=== PATIENT | male | born 1935 | race Caucasian/White ===

== ENCOUNTER 2022-04-20 22:35 | Observation (INO) | payer MEDICARE, OTHER, SELFPAY ==
[2022-04-20 23:23] LABS: ALT (SGPT) 9 U/L (8-55); AST (SGOT) 14 U/L (5-34); Albumin 3.7 g/dL (3.4-4.8); Alkaline Phosphatase 163 U/L (40-110); Anion Gap 12 mmol/L (10-20); BUN (Urea Nitrogen) 20 mg/dL (8.4-25.7); Bilirubin, Total 0.7 mg/dL (0.2-1.2); Calc. Creatinine Clearance 0 mL/min (70-130); Calcium 9.3 mg/dL (7.8-10.44); Carbon Dioxide 25 mmol/L (23-31); Chloride 106 mmol/L (98-107); Estimated GFR 56; Globulin 2.6 g/dL (2.4-3.5); Glucose 98 mg/dL (83-110); Potassium 4.2 mmol/L (3.5-5.1); Protein, Total 6.3 g/dL (5.8-8.1); Sodium 139 mmol/L (136-145)
[2022-04-20 23:45] LABS: CKMB 2.6 ng/mL (0-6.6)
[2022-04-20] MEDS ORDERED: Aspirin 325 MG TAB ONE (23:45)
[2022-04-21 00:02] LABS: Lipase 89 U/L (8-78); Magnesium 1.9 mg/dL (1.6-2.6)
[2022-04-21] MEDS ORDERED: Ondansetron PF 4 MG/2 ML Vial IVP PRN (01:51)
[2022-04-21] MEDS ORDERED: Ondansetron ODT 4 MG TAB PO PRN (01:51)
[2022-04-21] MEDS ORDERED: Calcium Carbonate 500 MG ChewTAB PO PRN (01:51)
[2022-04-21 03:11] LABS: Troponin I 0.032 ng/mL (< 0.028)
[2022-04-21 05:51] LABS: ALT (SGPT) 8 U/L (8-55); AST (SGOT) 12 U/L (5-34); Albumin 3.5 g/dL (3.4-4.8); Alkaline Phosphatase 142 U/L (40-110); Anion Gap 10 mmol/L (10-20); BUN (Urea Nitrogen) 18 mg/dL (8.4-25.7); Bilirubin, Total 0.7 mg/dL (0.2-1.2); Calc. Creatinine Clearance 0 mL/min (70-130); Calcium 9.2 mg/dL (7.8-10.44); Carbon Dioxide 26 mmol/L (23-31); Chloride 107 mmol/L (98-107); Estimated GFR 67; Globulin 2.3 g/dL (2.4-3.5); Glucose 84 mg/dL (83-110); Potassium 4.4 mmol/L (3.5-5.1); Protein, Total 5.8 g/dL (5.8-8.1); Sodium 139 mmol/L (136-145)
[2022-04-21 05:54] LABS: Troponin I 0.037 ng/mL (< 0.028)
[2022-04-21 06:06] LABS: #Basophils 0.1 thou/uL (0.0-0.2); #Eosinphils 0.1 thou/uL (0.0-0.7); #Lymphocytes 1.6 thou/uL (1.20-3.40); #Monocytes 0.5 thou/uL (0.11-0.59); #Neutrophils 2.7 thou/uL (1.40-6.50); %Basophils 1.1 % (0.0-1.0); %Eosinophils 2.6 % (0.0-10.0); %Lymphocytes 31.9 % (21.0-51.0); %Monocytes 10.3 % (0.0-10.0); Hemoglobin 11.1 g/dL (14.0-18.0); MDiff Complete? YES; Macrocytosis SLIGHT = 6-15 cells (100X) (0-5/hpf); Mean Corpuscular HGB CONC 33.1 g/dL (32.0-36.0); Mean Platelet Volume 6.7 fL (7.4-10.4); Platelet Count 251 thou/uL (130-400); RBC Distribution Width 12.6 % (11.5-14.5); Red Blood Cell (RBC) Count 3.19 mill/uL (4.70-6.10)
[2022-04-21 07:45] VITALS: BMI 23.4
[2022-04-21] MEDS ORDERED: Enoxaparin Sodium 40 MG/0.4 ML SYRINGE SC SCH (09:00)
[2022-04-21] MEDS ORDERED: FLU VACC QS2022-23(65YR UP)/PF 240 MCG/0.7 ML SYRINGE IM ONE (14:00)
[2022-04-21] MEDS ORDERED: Methocarbamol 500 MG TAB PO PRN (17:56)
[2022-04-21] MEDS ORDERED: hydrALAZINE 20 MG/ML VIAL SLOW IVP PRN (18:00)
[2022-04-21] MEDS ORDERED: Atorvastatin Calcium 20 MG TAB PO SCH (21:00)
[2022-04-21] MEDS: Docusate 100 MG CAP PO SCH (21:08)
[2022-04-21] MEDS: Apixaban 2.5 MG TAB PO SCH (21:09)
[2022-04-22 05:55] LABS: #Eosinphils 0.1 thou/uL (0.0-0.7); #Lymphocytes 1.3 thou/uL (1.20-3.40); #Monocytes 0.6 thou/uL (0.11-0.59); #Neutrophils 3.2 thou/uL (1.40-6.50); %Basophils 0.5 % (0.0-1.0); %Eosinophils 2.5 % (0.0-10.0); %Lymphocytes 24.7 % (21.0-51.0); %Neutrophils 60.4 % (42.0-75.0); Hemoglobin 11.2 g/dL (14.0-18.0); Mean Corpuscular HGB CONC 33.1 g/dL (32.0-36.0); Mean Corpuscular Hemoglobin 34.8 pg (27.0-31.0); Mean Platelet Volume 7.1 fL (7.4-10.4); Platelet Count 247 thou/uL (130-400); RBC Distribution Width 12.6 % (11.5-14.5); Red Blood Cell (RBC) Count 3.22 mill/uL (4.70-6.10); White Blood Cell (WBC) Count 5.3 thou/uL (4.8-10.8)
[2022-04-22] MEDS ORDERED: Levothyroxine Sodium 100 MCG TAB PO SCH (06:00)
[2022-04-22 06:39] LABS: ALT (SGPT) 8 U/L (8-55); AST (SGOT) 13 U/L (5-34); Albumin 3.5 g/dL (3.4-4.8); Alkaline Phosphatase 144 U/L (40-110); Anion Gap 10 mmol/L (10-20); BUN (Urea Nitrogen) 15 mg/dL (8.4-25.7); Bilirubin, Total 0.8 mg/dL (0.2-1.2); Calc. Creatinine Clearance 60 mL/min (70-130); Calcium 9.7 mg/dL (7.8-10.44); Carbon Dioxide 28 mmol/L (23-31); Chloride 105 mmol/L (98-107); Estimated GFR 74; Globulin 2.4 g/dL (2.4-3.5); Glucose 86 mg/dL (83-110); Potassium 4.5 mmol/L (3.5-5.1); Protein, Total 5.9 g/dL (5.8-8.1); Sodium 138 mmol/L (136-145)
[2022-04-22] MEDS ORDERED: Sertraline 100 MG TAB PO SCH (09:00)
[2022-04-22] MEDS ORDERED: Cholecalciferol 1,000 UNITS (25 MCG) TAB PO SCH (09:00)
[2022-04-22] MEDS ORDERED: Multivitamin W/ Minerals 1 TAB PO SCH (09:00)
[2022-04-22] MEDS ORDERED: Aspirin 81 mg Enteric Coated Tablet PO SCH (09:00)
[2022-04-22] MEDS ORDERED: Losartan 25 MG TAB PO SCH (09:00)
[2022-04-22] MEDS: Apixaban 2.5 MG TAB PO SCH (10:07)
[2022-04-22] MEDS: Docusate 100 MG CAP PO SCH (10:07)
[2022-04-23 02:37] VITALS: BP 162/93
[2022-04-23 02:41] VITALS: TEMP 98.1
== END 2022-04-22 16:56 ==
LOC: ERS 22:35 → ERHOLD 04-21 00:56 → 2SW 04-21 07:34
PROVIDERS: ADMIT Emergency Medicine; ATTEND Emergency Medicine
DX: R07.89 Other chest pain (principal); E11.9 Type 2 diabetes mellitus without complications; E78.5 Hyperlipidemia, unspecified; E03.9 Hypothyroidism, unspecified; M19.90 Unspecified osteoarthritis, unspecified site; F17.210 Nicotine dependence, cigarettes, uncomplicated; I70.0 Atherosclerosis of aorta; F03.90 Unspecified dementia, unspecified severity, without behavioral disturbance, psychotic disturbance, mood disturbance, and anxiety; F17.220 Nicotine dependence, chewing tobacco, uncomplicated; I11.9 Hypertensive heart disease without heart failure; I08.8 Other rheumatic multiple valve diseases; I48.0 Paroxysmal atrial fibrillation; R41.0 Disorientation, unspecified; Z79.01 Long term (current) use of anticoagulants; Z79.82 Long term (current) use of aspirin; Z79.890 Hormone replacement therapy; Z79.899 Other long term (current) drug therapy; Z88.8 Allergy status to other drugs, medicaments and biological substances; Z95.0 Presence of cardiac pacemaker; Z20.822 Contact with and (suspected) exposure to COVID-19
CPT/HCPCS: 36415; 71045; 80053; 82553; 83690; 83735; 84484; 85025; 93005; 93306; 96372; G0378; J1650; U0003; U0005

== ENCOUNTER 2022-05-29 20:15 | Inpatient (IN) | payer OTHER ==
[2022-05-29 21:56] LABS: ALT (SGPT) 35 U/L (8-55); AST (SGOT) 33 U/L (5-34); Albumin 3.7 g/dL (3.4-4.8); Alkaline Phosphatase 126 U/L (40-110); Anion Gap 11 mmol/L (10-20); BUN (Urea Nitrogen) 17 mg/dL (8.4-25.7); Bilirubin, Total 0.7 mg/dL (0.2-1.2); Calc. Creatinine Clearance 0 mL/min (70-130); Carbon Dioxide 27 mmol/L (23-31); Chloride 106 mmol/L (98-107); Estimated GFR 54; Globulin 2.3 g/dL (2.4-3.5); Glucose 107 mg/dL (83-110); Lipase 61 U/L (8-78); Potassium 4.4 mmol/L (3.5-5.1); Sodium 140 mmol/L (136-145)
[2022-05-29 22:02] LABS: #Eosinphils 0.1 thou/uL (0.0-0.7); #Lymphocytes 1.4 thou/uL (1.20-3.40); #Monocytes 0.7 thou/uL (0.11-0.59); #Neutrophils 4.8 thou/uL (1.40-6.50); %Basophils 0.7 % (0.0-1.0); %Lymphocytes 19.4 % (21.0-51.0); %Monocytes 10.2 % (0.0-10.0); %Neutrophils 67.7 % (42.0-75.0); Hemoglobin 12.1 g/dL (14.0-18.0); Mean Corpuscular HGB CONC 32.4 g/dL (32.0-36.0); Mean Corpuscular Hemoglobin 33.9 pg (27.0-31.0); Mean Platelet Volume 7.4 fL (7.4-10.4); Platelet Count 274 10x3/uL (130-400); RBC Distribution Width 12.1 % (11.5-14.5); Red Blood Cell (RBC) Count 3.58 mill/uL (4.70-6.10)
[2022-05-29 22:22] LABS: CKMB 3.7 ng/mL (0-6.6)
[2022-05-29] MEDS ORDERED: Nitroglycerin 2% Ointment 1 INCH/1 GM Packet ONE (23:27)
[2022-05-29] MEDS ORDERED: Furosemide 40 MG/4 ML VIAL ONE (23:27)
[2022-05-30] MEDS ORDERED: LORazepam 2 MG/ML SYR.(CARPUJECT) ONE (00:35)
[2022-05-30 01:43] LABS: Troponin I 0.047 ng/mL (< 0.028)
[2022-05-30] MEDS ORDERED: Methocarbamol 500 MG TAB PO PRN (02:08)
[2022-05-30 02:12] LABS: Magnesium 1.9 mg/dL (1.6-2.6); Phosphorus 3.3 mg/dL (2.3-4.7)
[2022-05-30 04:48] LABS: Anion Gap 13 mmol/L (10-20); BUN (Urea Nitrogen) 19 mg/dL (8.4-25.7); Calc. Creatinine Clearance 49 mL/min (70-130); Calcium 9.2 mg/dL (7.8-10.44); Carbon Dioxide 28 mmol/L (23-31); Chloride 104 mmol/L (98-107); Estimated GFR 57; Glucose 89 mg/dL (83-110); Sodium 141 mmol/L (136-145)
[2022-05-30 04:53] LABS: Troponin I 0.052 ng/mL (< 0.028)
[2022-05-30] MEDS: Acetaminophen 500 MG TAB PO SCH ×3 (05:39→22:14)
[2022-05-30] MEDS: Lidocaine 5% Patch TD SCH ×2 (05:40→08:14)
[2022-05-30] MEDS ORDERED: Lactated Ringer's 1,000 ML IV SCH (06:00)
[2022-05-30] MEDS ORDERED: Sodium Chloride 0.9% 1,000 ML IV SCH (06:15)
[2022-05-30 06:26] LABS: Hemoglobin 10.2 g/dL (14.0-18.0)
[2022-05-30] MEDS: Levothyroxine Sodium 100 MCG TAB PO SCH (08:17)
[2022-05-30] MEDS: Docusate 100 MG CAP PO SCH ×2 (08:17→22:14)
[2022-05-30] MEDS: Sertraline 25 MG TAB PO SCH (08:18)
[2022-05-30] MEDS: Cholecalciferol 1,000 UNITS (25 MCG) TAB PO SCH (08:18)
[2022-05-30 08:51] LABS: Hemoglobin 9.5 g/dL (14.0-18.0)
[2022-05-30] MEDS ORDERED: FLU VACC QS2022-23(6MOS UP)/PF 60 MCG/0.5 ML SYRINGE IM ONE (09:00)
[2022-05-30] MEDS ORDERED: Furosemide 20 MG/2 ML VIAL SLOW IVP SCH (09:00)
[2022-05-30] MEDS ORDERED: Aspirin 81 mg Enteric Coated Tablet PO SCH (09:00)
[2022-05-30] MEDS ORDERED: Losartan 25 MG TAB PO SCH (09:00)
[2022-05-30] MEDS ORDERED: Apixaban 5 MG TAB PO SCH (09:00)
[2022-05-30 12:20] LABS: Hemoglobin 9.4 g/dL (14.0-18.0)
[2022-05-30] MEDS: Multivitamin W/ Minerals 1 TAB PO SCH (12:30)
[2022-05-30 17:13] LABS: Hemoglobin 9.3 g/dL (14.0-18.0)
[2022-05-30] MEDS: Atorvastatin Calcium 20 MG TAB PO SCH (22:14)
[2022-05-30] MEDS: Transdermal Patch Removal TOP SCH (22:17)
[2022-05-31] MEDS ORDERED: Haloperidol Lactate 5 MG/ML VIAL SLOW IVP SCH (02:00)
[2022-05-31] MEDS ORDERED: diphenhydrAMINE 50 MG/ML VIAL IVP SCH (02:00)
[2022-05-31 05:29] LABS: Hemoglobin 7.9 g/dL (14.0-18.0)
[2022-05-31 05:50] LABS: Anion Gap 13 mmol/L (10-20); BUN (Urea Nitrogen) 27 mg/dL (8.4-25.7); Calc. Creatinine Clearance 47 mL/min (70-130); Calcium 8.4 mg/dL (7.8-10.44); Carbon Dioxide 25 mmol/L (23-31); Chloride 106 mmol/L (98-107); Estimated GFR 55; Glucose 98 mg/dL (83-110); Potassium 3.7 mmol/L (3.5-5.1); Sodium 140 mmol/L (136-145)
[2022-05-31] MEDS: Lidocaine 5% Patch TD SCH (09:01)
[2022-05-31] MEDS: Multivitamin W/ Minerals 1 TAB PO SCH (09:01)
[2022-05-31] MEDS: Levothyroxine Sodium 100 MCG TAB PO SCH (09:02)
[2022-05-31] MEDS: Docusate 100 MG CAP PO SCH ×2 (09:02→20:30)
[2022-05-31] MEDS: Acetaminophen 500 MG TAB PO SCH ×2 (09:02→20:30)
[2022-05-31] MEDS: Cholecalciferol 1,000 UNITS (25 MCG) TAB PO SCH (09:02)
[2022-05-31] MEDS: Sertraline 25 MG TAB PO SCH (09:02)
[2022-05-31 09:40] LABS: Hemoglobin 8.3 g/dL (14.0-18.0)
[2022-05-31 13:21] VITALS: BMI 24.7
[2022-05-31 18:55] LABS: Hemoglobin 8.2 g/dL (14.0-18.0)
[2022-05-31] MEDS: Atorvastatin Calcium 20 MG TAB PO SCH (20:30)
[2022-05-31] MEDS: Transdermal Patch Removal TOP SCH (20:31)
[2022-06-01 05:40] LABS: #Eosinphils 0.2 thou/uL (0.0-0.7); #Lymphocytes 1.6 thou/uL (1.20-3.40); #Monocytes 0.9 thou/uL (0.11-0.59); #Neutrophils 4.2 thou/uL (1.40-6.50); %Basophils 0.2 % (0.0-1.0); %Eosinophils 2.3 % (0.0-10.0); %Lymphocytes 23.1 % (21.0-51.0); %Neutrophils 61.3 % (42.0-75.0); Hemoglobin 7.7 g/dL (14.0-18.0); Mean Corpuscular HGB CONC 32.9 g/dL (32.0-36.0); Mean Corpuscular Hemoglobin 34.5 pg (27.0-31.0); Mean Platelet Volume 7.2 fL (7.4-10.4); Platelet Count 191 10x3/uL (130-400); Red Blood Cell (RBC) Count 2.23 mill/uL (4.70-6.10); White Blood Cell (WBC) Count 6.9 10x3/uL (4.8-10.8)
[2022-06-01 05:58] LABS: Anion Gap 12 mmol/L (10-20); BUN (Urea Nitrogen) 22 mg/dL (8.4-25.7); Calc. Creatinine Clearance 57 mL/min (70-130); Calcium 8.4 mg/dL (7.8-10.44); Carbon Dioxide 26 mmol/L (23-31); Chloride 105 mmol/L (98-107); Estimated GFR 68; Glucose 84 mg/dL (83-110); Potassium 4.2 mmol/L (3.5-5.1); Sodium 139 mmol/L (136-145)
[2022-06-01] MEDS: Multivitamin W/ Minerals 1 TAB PO SCH (09:03)
[2022-06-01] MEDS: Acetaminophen 500 MG TAB PO SCH ×2 (09:03→21:12)
[2022-06-01] MEDS: Sertraline 25 MG TAB PO SCH (09:04)
[2022-06-01] MEDS: Cholecalciferol 1,000 UNITS (25 MCG) TAB PO SCH (09:04)
[2022-06-01] MEDS: Levothyroxine Sodium 100 MCG TAB PO SCH (09:04)
[2022-06-01] MEDS: Docusate 100 MG CAP PO SCH ×2 (09:05→21:12)
[2022-06-01] MEDS: Lidocaine 5% Patch TD SCH (09:05)
[2022-06-01] MEDS ORDERED: Furosemide 20 MG/2 ML VIAL SLOW IVP SCH (09:45)
[2022-06-01 17:11] LABS: Hemoglobin 9.3 g/dL (14.0-18.0)
[2022-06-01] MEDS: Transdermal Patch Removal TOP SCH (21:12)
[2022-06-01] MEDS: Atorvastatin Calcium 20 MG TAB PO SCH (21:12)
[2022-06-02 07:23] LABS: #Eosinphils 0.2 thou/uL (0.0-0.7); #Lymphocytes 1.7 thou/uL (1.20-3.40); #Monocytes 0.9 thou/uL (0.11-0.59); %Basophils 0.5 % (0.0-1.0); %Lymphocytes 24.5 % (21.0-51.0); %Monocytes 13.2 % (0.0-10.0); %Neutrophils 58.8 % (42.0-75.0); Hemoglobin 8.9 g/dL (14.0-18.0); Mean Corpuscular HGB CONC 35.7 g/dL (32.0-36.0); Mean Corpuscular Hemoglobin 36.6 pg (27.0-31.0); Platelet Count 192 10x3/uL (130-400); RBC Distribution Width 12.7 % (11.5-14.5); Red Blood Cell (RBC) Count 2.43 mill/uL (4.70-6.10); White Blood Cell (WBC) Count 6.8 10x3/uL (4.8-10.8)
[2022-06-02 07:35] LABS: Anion Gap 13 mmol/L (10-20); BUN (Urea Nitrogen) 18 mg/dL (8.4-25.7); Calc. Creatinine Clearance 61 mL/min (70-130); Calcium 8.7 mg/dL (7.8-10.44); Carbon Dioxide 25 mmol/L (23-31); Chloride 105 mmol/L (98-107); Estimated GFR 72; Glucose 83 mg/dL (83-110); Potassium 4.1 mmol/L (3.5-5.1); Sodium 139 mmol/L (136-145)
[2022-06-02] MEDS: Docusate 100 MG CAP PO SCH ×2 (08:58→20:02)
[2022-06-02] MEDS: Levothyroxine Sodium 100 MCG TAB PO SCH (08:58)
[2022-06-02] MEDS: Sertraline 25 MG TAB PO SCH (08:58)
[2022-06-02] MEDS: Lidocaine 5% Patch TD SCH (08:58)
[2022-06-02] MEDS: Multivitamin W/ Minerals 1 TAB PO SCH (08:58)
[2022-06-02] MEDS: Cholecalciferol 1,000 UNITS (25 MCG) TAB PO SCH (08:59)
[2022-06-02] MEDS: Acetaminophen 500 MG TAB PO SCH ×2 (08:59→20:02)
[2022-06-02] MEDS: Atorvastatin Calcium 20 MG TAB PO SCH (20:02)
[2022-06-02] MEDS: Transdermal Patch Removal TOP SCH (20:03)
[2022-06-03 06:17] LABS: Anion Gap 10 mmol/L (10-20); BUN (Urea Nitrogen) 20 mg/dL (8.4-25.7); Calc. Creatinine Clearance 62 mL/min (70-130); Calcium 8.7 mg/dL (7.8-10.44); Carbon Dioxide 28 mmol/L (23-31); Chloride 105 mmol/L (98-107); Estimated GFR 77; Glucose 93 mg/dL (83-110); Potassium 4.3 mmol/L (3.5-5.1); Sodium 139 mmol/L (136-145)
[2022-06-03] MEDS: Lidocaine 5% Patch TD SCH (09:29)
[2022-06-03] MEDS: Acetaminophen 500 MG TAB PO SCH (09:31)
[2022-06-03] MEDS: Cholecalciferol 1,000 UNITS (25 MCG) TAB PO SCH (09:32)
[2022-06-03] MEDS: Levothyroxine Sodium 100 MCG TAB PO SCH (09:32)
[2022-06-03] MEDS: Multivitamin W/ Minerals 1 TAB PO SCH (09:32)
[2022-06-03] MEDS: Docusate 100 MG CAP PO SCH (09:32)
[2022-06-03] MEDS: Sertraline 25 MG TAB PO SCH (09:32)
[2022-06-03 11:32] VITALS: BP 136/70; TEMP 97.6
== END 2022-06-03 14:15 | DRG 291 ==
LOC: ERS 20:15 → NEURO 05-30 01:05 → OBSVTOIN 06-02 15:19
PROVIDERS: ADMIT Family Medicine; ATTEND Student in an Organized Health Care Education/Training Program
PROC: 30233N1 Transfusion of Nonautologous Red Blood Cells into Peripheral Vein, Percutaneous Approach (ICD-10-PCS; principal; 2022-06-01)
DX: I13.0 Hypertensive heart and chronic kidney disease with heart failure and stage 1 through stage 4 chronic kidney disease, or unspecified chronic kidney disease (principal); I50.43 Acute on chronic combined systolic (congestive) and diastolic (congestive) heart failure; I47.20 Ventricular tachycardia, unspecified; Z66 Do not resuscitate; Z20.822 Contact with and (suspected) exposure to COVID-19; R94.31 Abnormal electrocardiogram [ECG] [EKG]; R77.8 Other specified abnormalities of plasma proteins; N18.31 Chronic kidney disease, stage 3a; G31.84 Mild cognitive impairment of uncertain or unknown etiology; E03.9 Hypothyroidism, unspecified; E78.5 Hyperlipidemia, unspecified; R29.6 Repeated falls; M19.90 Unspecified osteoarthritis, unspecified site; I48.0 Paroxysmal atrial fibrillation; W18.30XA Fall on same level, unspecified, initial encounter; S70.02XA Contusion of left hip, initial encounter; Z28.21 Immunization not carried out because of patient refusal; Z95.0 Presence of cardiac pacemaker; Z88.8 Allergy status to other drugs, medicaments and biological substances; Z79.899 Other long term (current) drug therapy; Z79.82 Long term (current) use of aspirin; Z79.890 Hormone replacement therapy; Z79.01 Long term (current) use of anticoagulants; Z82.3 Family history of stroke; Z82.49 Family history of ischemic heart disease and other diseases of the circulatory system; Z91.81 History of falling
CPT/HCPCS: 36415; 36430; 71045; 72170; 74176; 80048; 80053; 82553; 83690; 83735; 83880; 84100; 84484; 85014; 85018; 85025; 86850; 86900; 86901; 93005; 96374; 96375; 96376; 97139; G0378; J1940; J2060; J7050; P9016; U0002

== ENCOUNTER 2022-09-05 05:16 | Observation (INO) | payer OTHER ==
[2022-09-05 06:38] LABS: #Lymphocytes 1.1 thou/uL (1.20-3.40); #Monocytes 0.9 thou/uL (0.11-0.59); #Neutrophils 4.9 thou/uL (1.40-6.50); %Basophils 0.2 % (0.0-1.0); %Eosinophils 0.7 % (0.0-10.0); %Monocytes 12.4 % (0.0-10.0); %Neutrophils 70.7 % (42.0-75.0); Hemoglobin 11.9 g/dL (14.0-18.0); Mean Corpuscular HGB CONC 33.6 g/dL (32.0-36.0); Mean Corpuscular Hemoglobin 34.8 pg (27.0-31.0); Mean Platelet Volume 7.3 fL (7.4-10.4); Platelet Count 205 10x3/uL (130-400); RBC Distribution Width 12.2 % (11.5-14.5); Red Blood Cell (RBC) Count 3.43 mill/uL (4.70-6.10)
[2022-09-05 07:00] LABS: ALT (SGPT) 26 U/L (8-55); AST (SGOT) 27 U/L (5-34); Albumin 3.6 g/dL (3.4-4.8); Alkaline Phosphatase 83 U/L (40-110); Anion Gap 14 mmol/L (10-20); BUN (Urea Nitrogen) 21 mg/dL (8.4-25.7); Bilirubin, Total 0.6 mg/dL (0.2-1.2); Calc. Creatinine Clearance 0 mL/min (70-130); Calcium 9.1 mg/dL (7.8-10.44); Carbon Dioxide 23 mmol/L (23-31); Chloride 100 mmol/L (98-107); Estimated GFR 63; Globulin 2.1 g/dL (2.4-3.5); Glucose 93 mg/dL (83-110); Magnesium 1.7 mg/dL (1.6-2.6); Potassium 4.6 mmol/L (3.5-5.1); Protein, Total 5.7 g/dL (5.8-8.1); Sodium 132 mmol/L (136-145)
[2022-09-05 07:16] LABS: Bilirubin Negative (Negative); Blood, Urine Negative (Negative); Glucose, Urine (Dipstick) Negative (Negative); Ketone, Urine Negative (Negative); Leukocyte Negative (Negative); Nitrite Negative (Negative); Protein, Urine (Dipstick) Negative (Neg-Trace); Urobilinogen 0.2 mg/dL (Less than 2); pH, Urine 6.5 (5.0-9.0)
[2022-09-05 07:19] LABS: Clarity Clear (Clear)
[2022-09-05 07:21] LABS: CKMB 5.2 ng/mL (0-6.6)
[2022-09-05] MEDS ORDERED: Furosemide 40 MG/4 ML VIAL ONE (07:54)
[2022-09-05] MEDS ORDERED: Cholecalciferol 1,000 UNITS (25 MCG) TAB PO SCH (09:00)
[2022-09-05] MEDS ORDERED: Non-Formulary Item 1 EACH (Sertraline Hcl [Zoloft] 50 MG Tablet) PO SCH (09:00)
[2022-09-05] MEDS ORDERED: Non-Formulary Item 1 EACH (Losartan Potassium [Cozaar] 50 MG Tab) PO SCH (09:00)
[2022-09-05] MEDS ORDERED: Acetaminophen/Codeine 30-300mg Tablet PO PRN ×2 (10:50→11:06)
[2022-09-05] MEDS ORDERED: Methocarbamol 500 MG TAB PO PRN (10:50)
[2022-09-05] MEDS ORDERED: Aspirin Chewable 81 MG TAB ONE (11:18)
[2022-09-05] MEDS ORDERED: Metoprolol Tartrate 50 MG TAB ONE (11:18)
[2022-09-05] MEDS: Aspirin 81 mg Enteric Coated Tablet PO SCH (11:21)
[2022-09-05 11:47] LABS: Troponin I 0.048 ng/mL (< 0.028)
[2022-09-05] MEDS ORDERED: Furosemide 40 MG/4 ML VIAL SLOW IVP SCH (13:00)
[2022-09-05 13:41] LABS: Troponin I 0.041 ng/mL (< 0.028)
[2022-09-05] MEDS ORDERED: Ondansetron PF 4 MG/2 ML Vial IVP PRN (13:46)
[2022-09-05] MEDS ORDERED: Ondansetron ODT 4 MG TAB PO PRN (13:46)
[2022-09-05] MEDS ORDERED: Acetaminophen 325 MG TAB PO PRN (13:46)
[2022-09-05] MEDS: Levothyroxine Sodium 100 MCG TAB PO SCH (14:40)
[2022-09-05] MEDS: Cyanocobalamin (Vitamin B-12) 1,000 MCG TAB PO SCH (14:41)
[2022-09-05] MEDS: Multivitamin W/ Minerals 1 TAB PO SCH (14:46)
[2022-09-05] MEDS: Apixaban 2.5 MG TAB PO SCH (21:37)
[2022-09-05] MEDS: Atorvastatin Calcium 20 MG TAB PO SCH (21:37)
[2022-09-05] MEDS: Docusate 100 MG CAP PO SCH (21:37)
[2022-09-05] MEDS: Melatonin 3 MG TAB PO PRN (21:37)
[2022-09-06 04:58] LABS: #Basophils 0.1 thou/uL (0.0-0.2); #Eosinphils 0.1 thou/uL (0.0-0.7); #Lymphocytes 1.4 thou/uL (1.20-3.40); #Neutrophils 4.8 thou/uL (1.40-6.50); %Basophils 0.8 % (0.0-1.0); %Eosinophils 1.4 % (0.0-10.0); %Lymphocytes 18.8 % (21.0-51.0); %Monocytes 13.4 % (0.0-10.0); %Neutrophils 65.7 % (42.0-75.0); Hemoglobin 11.6 g/dL (14.0-18.0); Mean Corpuscular Hemoglobin 34.9 pg (27.0-31.0); Mean Platelet Volume 7.3 fL (7.4-10.4); Platelet Count 196 10x3/uL (130-400); RBC Distribution Width 12.3 % (11.5-14.5); Red Blood Cell (RBC) Count 3.33 mill/uL (4.70-6.10); White Blood Cell (WBC) Count 7.3 10x3/uL (4.8-10.8)
[2022-09-06 05:24] LABS: ALT (SGPT) 23 U/L (8-55); AST (SGOT) 26 U/L (5-34); Albumin 3.1 g/dL (3.4-4.8); Alkaline Phosphatase 86 U/L (40-110); Anion Gap 13 mmol/L (10-20); BUN (Urea Nitrogen) 25 mg/dL (8.4-25.7); Bilirubin, Total 0.6 mg/dL (0.2-1.2); Calc. Creatinine Clearance 54 mL/min (70-130); Calcium 9.1 mg/dL (7.8-10.44); Carbon Dioxide 25 mmol/L (23-31); Chloride 102 mmol/L (98-107); Estimated GFR 51; Globulin 2.2 g/dL (2.4-3.5); Glucose 109 mg/dL (83-110); Potassium 4.4 mmol/L (3.5-5.1); Protein, Total 5.3 g/dL (5.8-8.1); Sodium 136 mmol/L (136-145)
[2022-09-06] MEDS: Aspirin 81 mg Enteric Coated Tablet PO SCH (08:10)
[2022-09-06] MEDS: Sertraline 25 MG TAB PO SCH (08:11)
[2022-09-06] MEDS: Cyanocobalamin (Vitamin B-12) 1,000 MCG TAB PO SCH (08:11)
[2022-09-06] MEDS: Losartan 25 MG TAB PO SCH (08:11)
[2022-09-06] MEDS: Apixaban 2.5 MG TAB PO SCH ×2 (08:11→20:55)
[2022-09-06] MEDS: Docusate 100 MG CAP PO SCH ×2 (08:11→20:54)
[2022-09-06] MEDS: Levothyroxine Sodium 100 MCG TAB PO SCH (08:12)
[2022-09-06] MEDS: Cholecalciferol 1,000 UNITS (25 MCG) TAB PO SCH (08:12)
[2022-09-06] MEDS: Multivitamin W/ Minerals 1 TAB PO SCH (08:14)
[2022-09-06 15:26] LABS: Anion Gap 13 mmol/L (10-20); BUN (Urea Nitrogen) 26 mg/dL (8.4-25.7); Calc. Creatinine Clearance 57 mL/min (70-130); Calcium 9.1 mg/dL (7.8-10.44); Carbon Dioxide 27 mmol/L (23-31); Chloride 100 mmol/L (98-107); Estimated GFR 56; Glucose 103 mg/dL (83-110); Potassium 4.5 mmol/L (3.5-5.1); Sodium 135 mmol/L (136-145)
[2022-09-06] MEDS: Atorvastatin Calcium 20 MG TAB PO SCH (20:54)
[2022-09-06] MEDS ORDERED: Aspirin Chewable 81 MG TAB PO SCH (22:00)
[2022-09-06] MEDS: Melatonin 3 MG TAB PO PRN (22:23)
[2022-09-06 22:27] LABS: Troponin I 0.033 ng/mL (< 0.028)
[2022-09-07 01:36] LABS: Troponin I 0.038 ng/mL (< 0.028)
[2022-09-07 05:54] LABS: #Eosinphils 0.1 thou/uL (0.0-0.7); #Lymphocytes 1.4 thou/uL (1.20-3.40); #Monocytes 0.8 thou/uL (0.11-0.59); #Neutrophils 3.6 thou/uL (1.40-6.50); %Basophils 0.7 % (0.0-1.0); %Eosinophils 1.9 % (0.0-10.0); %Monocytes 12.9 % (0.0-10.0); %Neutrophils 60.5 % (42.0-75.0); Hemoglobin 11.6 g/dL (14.0-18.0); Mean Corpuscular HGB CONC 35.1 g/dL (32.0-36.0); Mean Corpuscular Hemoglobin 35.7 pg (27.0-31.0); Mean Platelet Volume 7.4 fL (7.4-10.4); Platelet Count 186 10x3/uL (130-400); RBC Distribution Width 12.2 % (11.5-14.5); Red Blood Cell (RBC) Count 3.26 mill/uL (4.70-6.10)
[2022-09-07 06:14] LABS: ALT (SGPT) 22 U/L (8-55); AST (SGOT) 24 U/L (5-34); Albumin 3.1 g/dL (3.4-4.8); Alkaline Phosphatase 76 U/L (40-110); Anion Gap 10 mmol/L (10-20); BUN (Urea Nitrogen) 24 mg/dL (8.4-25.7); Bilirubin, Total 0.7 mg/dL (0.2-1.2); Calc. Creatinine Clearance 55 mL/min (70-130); Calcium 9.2 mg/dL (7.8-10.44); Carbon Dioxide 28 mmol/L (23-31); Chloride 102 mmol/L (98-107); Estimated GFR 55; Globulin 2.1 g/dL (2.4-3.5); Glucose 82 mg/dL (83-110); Potassium 4.3 mmol/L (3.5-5.1); Protein, Total 5.2 g/dL (5.8-8.1); Sodium 136 mmol/L (136-145)
[2022-09-07] MEDS ORDERED: Furosemide 20 MG TAB PO SCH (08:30)
[2022-09-07] MEDS: Apixaban 2.5 MG TAB PO SCH (10:38)
[2022-09-07] MEDS: Cholecalciferol 1,000 UNITS (25 MCG) TAB PO SCH (10:38)
[2022-09-07] MEDS: Levothyroxine Sodium 100 MCG TAB PO SCH (10:38)
[2022-09-07] MEDS: Sertraline 25 MG TAB PO SCH (10:38)
[2022-09-07] MEDS: Docusate 100 MG CAP PO SCH (10:38)
[2022-09-07] MEDS: Aspirin 81 mg Enteric Coated Tablet PO SCH (10:38)
[2022-09-07] MEDS: Cyanocobalamin (Vitamin B-12) 1,000 MCG TAB PO SCH (10:38)
[2022-09-07] MEDS: Losartan 25 MG TAB PO SCH (10:39)
[2022-09-07] MEDS: Multivitamin W/ Minerals 1 TAB PO SCH (10:39)
[2022-09-07 11:09] VITALS: BMI 27.6
[2022-09-07 17:30] VITALS: BP 136/68; TEMP 97.7
[2022-09-08] MEDS ORDERED: Furosemide 40 MG/4 ML VIAL SLOW IVP SCH (09:00)
== END 2022-09-07 16:05 ==
LOC: ERS 05:16 → ERHOLD 08:46 → INTOOBSV 08:46 → 2NO 12:44
PROVIDERS: ADMIT Family Medicine; ATTEND Family Medicine
DX: I11.0 Hypertensive heart disease with heart failure (principal); I50.23 Acute on chronic systolic (congestive) heart failure; S01.81XA Laceration without foreign body of other part of head, initial encounter; S60.221A Contusion of right hand, initial encounter; S60.511A Abrasion of right hand, initial encounter; I48.91 Unspecified atrial fibrillation; E11.9 Type 2 diabetes mellitus without complications; E78.5 Hyperlipidemia, unspecified; E03.9 Hypothyroidism, unspecified; M19.90 Unspecified osteoarthritis, unspecified site; D53.1 Other megaloblastic anemias, not elsewhere classified; Z66 Do not resuscitate; Z87.891 Personal history of nicotine dependence; Z79.01 Long term (current) use of anticoagulants; Z79.82 Long term (current) use of aspirin; Z79.890 Hormone replacement therapy; Z79.899 Other long term (current) drug therapy; Z88.8 Allergy status to other drugs, medicaments and biological substances; Z95.0 Presence of cardiac pacemaker; W05.0XXA Fall from non-moving wheelchair, initial encounter; Y92.129 Unspecified place in nursing home as the place of occurrence of the external cause
CPT/HCPCS: 36415; 70450; 71045; 80053; 81003; 82553; 83735; 83880; 84484; 85025; 93005; 93010; 96374; G0378; J1940

== ENCOUNTER 2022-09-17 22:26 | Emergency (ER) | payer OTHER | END 2022-09-18 00:02 | LOC: ERS 22:26 | DX: S09.90XA Unspecified injury of head, initial encounter (principal); I10 Essential (primary) hypertension; E78.5 Hyperlipidemia, unspecified; E03.9 Hypothyroidism, unspecified; W01.0XXA Fall on same level from slipping, tripping and stumbling without subsequent striking against object, initial encounter | CPT/HCPCS: 70450; 72125 ==

== ENCOUNTER 2022-09-23 04:17 | Emergency (ER) | payer MEDICARE, OTHER | END 2022-09-23 06:21 | disposition home or self-care (01) | LOC: ERS 04:17 | DX: M25.552 Pain in left hip (principal); I10 Essential (primary) hypertension; E78.5 Hyperlipidemia, unspecified; E03.9 Hypothyroidism, unspecified; F17.220 Nicotine dependence, chewing tobacco, uncomplicated; W05.0XXA Fall from non-moving wheelchair, initial encounter | CPT/HCPCS: 70450 ==

== ENCOUNTER 2022-10-02 09:08 | Inpatient (IN) | payer OTHER ==
[2022-10-02] MEDS ORDERED: Iopamidol-370 76% 500 ML MDV (1 ML CHARGE) ONE (09:27)
[2022-10-02 11:05] LABS: #Neutrophils 5.7 thou/uL (1.40-6.50); %Basophils 0.2 % (0.0-1.0); %Eosinophils 0.5 % (0.0-10.0); %Lymphocytes 12.9 % (21.0-51.0); %Monocytes 13.1 % (0.0-10.0); %Neutrophils 73.3 % (42.0-75.0); Mean Corpuscular HGB CONC 30.7 g/dL (32.0-36.0); Mean Corpuscular Hemoglobin 32.4 pg (27.0-31.0); Mean Platelet Volume 6.7 fL (7.4-10.4); Platelet Count 333 10x3/uL (130-400); RBC Distribution Width 14.2 % (11.5-14.5); Red Blood Cell (RBC) Count 2.46 mill/uL (4.70-6.10); White Blood Cell (WBC) Count 7.7 10x3/uL (4.8-10.8)
[2022-10-02 11:11] LABS: INR-International Normal Ratio 1.5; PTT 40.8 sec (22.9-36.1); Prothrombin Time 18.4 sec (12.0-14.7)
[2022-10-02 11:13] LABS: ALT (SGPT) 14 U/L (8-55); AST (SGOT) 25 U/L (5-34); Albumin 3.4 g/dL (3.4-4.8); Alkaline Phosphatase 93 U/L (40-110); Anion Gap 13 mmol/L (10-20); BUN (Urea Nitrogen) 35 mg/dL (8.4-25.7); Bilirubin, Total 1.8 mg/dL (0.2-1.2); Calc. Creatinine Clearance 0 mL/min (70-130); Calcium 9.1 mg/dL (7.8-10.44); Carbon Dioxide 25 mmol/L (23-31); Chloride 106 mmol/L (98-107); Estimated GFR 46; Globulin 2.3 g/dL (2.4-3.5); Glucose 123 mg/dL (83-110); Potassium 4.4 mmol/L (3.5-5.1); Protein, Total 5.7 g/dL (5.8-8.1); Sodium 140 mmol/L (136-145)
[2022-10-02 11:23] LABS: Bilirubin Negative (Negative); Blood, Urine Negative (Negative); Clarity Clear (Clear); Glucose, Urine (Dipstick) Greater than 1000 mg/dL (Negative); Ketone, Urine Negative (Negative); Leukocyte Negative Leu/uL (Negative); Nitrite Negative (Negative); Protein, Urine (Dipstick) Negative (Neg-Trace); Specific Gravity, Urine 1.021 (1.002-1.036); pH, Urine 6.5 (5.0-9.0)
[2022-10-02 11:34] LABS: CKMB 4.6 ng/mL (0-6.6)
[2022-10-02] MEDS ORDERED: Senokot S 8.6-50 MG TAB PO PRN (14:20)
[2022-10-02] MEDS ORDERED: HYDROcodone/Acetaminophen 5/325 mg Tablet PO PRN (14:20)
[2022-10-02] MEDS ORDERED: Guaifenesin DM 100-10/5 ML UDCUP PO PRN (14:20)
[2022-10-02] MEDS ORDERED: Acetaminophen 325 MG TAB PO PRN (14:20)
[2022-10-02] MEDS ORDERED: Sodium Chloride 0.9% 1,000 ML IV SCH (14:30)
[2022-10-02] MEDS ORDERED: Methocarbamol 500 MG TAB PO PRN (17:30)
[2022-10-02] MEDS: Docusate 100 MG CAP PO SCH (21:14)
[2022-10-02] MEDS: Atorvastatin Calcium 20 MG TAB PO SCH (21:14)
[2022-10-02 22:38] VITALS: BMI 29.4
[2022-10-03] MEDS: Levothyroxine Sodium 100 MCG TAB PO SCH (05:17)
[2022-10-03 05:50] LABS: #Eosinphils 0.1 thou/uL (0.0-0.7); #Lymphocytes 1.1 thou/uL (1.20-3.40); #Monocytes 1.1 thou/uL (0.11-0.59); #Neutrophils 4.9 thou/uL (1.40-6.50); %Basophils 0.7 % (0.0-1.0); %Eosinophils 0.9 % (0.0-10.0); %Lymphocytes 15.1 % (21.0-51.0); %Monocytes 14.9 % (0.0-10.0); %Neutrophils 68.5 % (42.0-75.0); Hemoglobin 8.4 g/dL (14.0-18.0); Mean Corpuscular HGB CONC 34.3 g/dL (32.0-36.0); Mean Corpuscular Hemoglobin 35.8 pg (27.0-31.0); Mean Platelet Volume 6.8 fL (7.4-10.4); Platelet Count 298 10x3/uL (130-400); RBC Distribution Width 14.4 % (11.5-14.5); Red Blood Cell (RBC) Count 2.36 mill/uL (4.70-6.10); White Blood Cell (WBC) Count 7.2 10x3/uL (4.8-10.8)
[2022-10-03 05:51] LABS: Anion Gap 14 mmol/L (10-20); BUN (Urea Nitrogen) 32 mg/dL (8.4-25.7); Calc. Creatinine Clearance 56 mL/min (70-130); Calcium 8.7 mg/dL (7.8-10.44); Carbon Dioxide 23 mmol/L (23-31); Chloride 105 mmol/L (98-107); Estimated GFR 53; Glucose 82 mg/dL (83-110); Sodium 138 mmol/L (136-145)
[2022-10-03 05:57] LABS: Fibrinogen 328 mg/dL (253-463)
[2022-10-03 05:58] LABS: INR-International Normal Ratio 1.3; Prothrombin Time 16.9 sec (12.0-14.7)
[2022-10-03 05:59] LABS: D-Dimer Test 1.06 *mcg/mL (0.27-0.43)
[2022-10-03 06:14] LABS: CKMB 3.6 ng/mL (0-6.6); Platelet Count 342 10x3/uL (130-400)
[2022-10-03] MEDS: Losartan 25 MG TAB PO SCH (09:46)
[2022-10-03] MEDS: Cyanocobalamin (Vitamin B-12) 1,000 MCG TAB PO SCH (09:47)
[2022-10-03] MEDS: Potassium Chloride 10 MEQ TAB PO SCH (09:47)
[2022-10-03] MEDS: Docusate 100 MG CAP PO SCH ×2 (09:47→20:57)
[2022-10-03] MEDS: Furosemide 80 MG TAB PO SCH (09:47)
[2022-10-03] MEDS: Sertraline 100 MG TAB PO SCH (09:47)
[2022-10-03] MEDS: Multivitamin W/ Minerals 1 TAB PO SCH (09:48)
[2022-10-03] MEDS: Empagliflozin 10 MG TAB PO SCH (09:48)
[2022-10-03] MEDS: Cholecalciferol 1,000 UNITS (25 MCG) TAB PO SCH (09:48)
[2022-10-03] MEDS: Metoprolol Tartrate 50 MG TAB PO SCH (20:57)
[2022-10-03] MEDS: Atorvastatin Calcium 20 MG TAB PO SCH (20:57)
[2022-10-04] MEDS: Levothyroxine Sodium 100 MCG TAB PO SCH (06:11)
[2022-10-04] MEDS: Losartan 25 MG TAB PO SCH (09:06)
[2022-10-04] MEDS: Docusate 100 MG CAP PO SCH ×2 (09:06→20:48)
[2022-10-04] MEDS: Cholecalciferol 1,000 UNITS (25 MCG) TAB PO SCH (09:06)
[2022-10-04] MEDS: Sertraline 100 MG TAB PO SCH (09:06)
[2022-10-04] MEDS: Multivitamin W/ Minerals 1 TAB PO SCH (09:06)
[2022-10-04] MEDS: Potassium Chloride 10 MEQ TAB PO SCH (09:06)
[2022-10-04] MEDS: Furosemide 80 MG TAB PO SCH (09:06)
[2022-10-04] MEDS: Metoprolol Tartrate 50 MG TAB PO SCH ×2 (09:13→20:49)
[2022-10-04] MEDS: Cyanocobalamin (Vitamin B-12) 1,000 MCG TAB PO SCH (09:13)
[2022-10-04] MEDS: Empagliflozin 10 MG TAB PO SCH (09:13)
[2022-10-04 09:53] LABS: Hemoglobin 9.1 g/dL (14.0-18.0); Mean Corpuscular HGB CONC 35.3 g/dL (32.0-36.0); Mean Platelet Volume 6.7 fL (7.4-10.4); Platelet Count 349 10x3/uL (130-400); RBC Distribution Width 14.5 % (11.5-14.5); Red Blood Cell (RBC) Count 2.45 mill/uL (4.70-6.10); White Blood Cell (WBC) Count 8.3 10x3/uL (4.8-10.8)
[2022-10-04 10:16] LABS: Anion Gap 15 mmol/L (10-20); BUN (Urea Nitrogen) 31 mg/dL (8.4-25.7); Calc. Creatinine Clearance 59 mL/min (70-130); Carbon Dioxide 23 mmol/L (23-31); Chloride 104 mmol/L (98-107); Estimated GFR 56; Glucose 107 mg/dL (83-110); Potassium 4.2 mmol/L (3.5-5.1); Sodium 138 mmol/L (136-145)
[2022-10-04] MEDS ORDERED: Apixaban 2.5 MG TAB PO SCH (10:30)
[2022-10-04] MEDS ORDERED: Furosemide 40 MG/4 ML VIAL SLOW IVP SCH (14:30)
[2022-10-04] MEDS: Atorvastatin Calcium 20 MG TAB PO SCH (20:48)
[2022-10-04] MEDS: Melatonin 3 MG TAB PO PRN (20:48)
[2022-10-04] MEDS: Apixaban 2.5 MG TAB PO SCH (20:49)
[2022-10-05 05:08] LABS: Hemoglobin 8.4 g/dL (14.0-18.0); Mean Corpuscular Hemoglobin 35.2 pg (27.0-31.0); Mean Platelet Volume 6.2 fL (7.4-10.4); Platelet Count 304 10x3/uL (130-400); RBC Distribution Width 14.5 % (11.5-14.5); Red Blood Cell (RBC) Count 2.39 mill/uL (4.70-6.10); White Blood Cell (WBC) Count 6.7 10x3/uL (4.8-10.8)
[2022-10-05 05:22] LABS: Anion Gap 16 mmol/L (10-20); BUN (Urea Nitrogen) 29 mg/dL (8.4-25.7); Calc. Creatinine Clearance 61 mL/min (70-130); Calcium 8.7 mg/dL (7.8-10.44); Carbon Dioxide 25 mmol/L (23-31); Chloride 102 mmol/L (98-107); Estimated GFR 58; Glucose 83 mg/dL (83-110); Potassium 3.6 mmol/L (3.5-5.1); Sodium 139 mmol/L (136-145)
[2022-10-05] MEDS: Levothyroxine Sodium 100 MCG TAB PO SCH (06:03)
[2022-10-05] MEDS: Losartan 25 MG TAB PO SCH (08:13)
[2022-10-05] MEDS: Sertraline 100 MG TAB PO SCH (08:13)
[2022-10-05] MEDS: Docusate 100 MG CAP PO SCH ×2 (08:13→20:25)
[2022-10-05] MEDS: Empagliflozin 10 MG TAB PO SCH (08:13)
[2022-10-05] MEDS: Potassium Chloride 10 MEQ TAB PO SCH (08:13)
[2022-10-05] MEDS: Cholecalciferol 1,000 UNITS (25 MCG) TAB PO SCH (08:13)
[2022-10-05] MEDS: Furosemide 80 MG TAB PO SCH (08:13)
[2022-10-05] MEDS: Metoprolol Tartrate 50 MG TAB PO SCH ×2 (08:13→20:24)
[2022-10-05] MEDS: Multivitamin W/ Minerals 1 TAB PO SCH (08:13)
[2022-10-05] MEDS: Cyanocobalamin (Vitamin B-12) 1,000 MCG TAB PO SCH (08:14)
[2022-10-05] MEDS: Aspirin 81 mg Enteric Coated Tablet PO SCH (08:14)
[2022-10-05] MEDS: Apixaban 2.5 MG TAB PO SCH ×2 (08:14→20:25)
[2022-10-05] MEDS: Atorvastatin Calcium 20 MG TAB PO SCH (20:24)
[2022-10-06 04:29] LABS: Hemoglobin 9.3 g/dL (14.0-18.0); Mean Corpuscular HGB CONC 32.8 g/dL (32.0-36.0); Mean Corpuscular Hemoglobin 34.2 pg (27.0-31.0); Mean Platelet Volume 6.5 fL (7.4-10.4); Platelet Count 363 10x3/uL (130-400); RBC Distribution Width 14.7 % (11.5-14.5); Red Blood Cell (RBC) Count 2.72 mill/uL (4.70-6.10); White Blood Cell (WBC) Count 8.3 10x3/uL (4.8-10.8)
[2022-10-06 04:42] LABS: Anion Gap 15 mmol/L (10-20); BUN (Urea Nitrogen) 30 mg/dL (8.4-25.7); Calc. Creatinine Clearance 58 mL/min (70-130); Calcium 8.9 mg/dL (7.8-10.44); Carbon Dioxide 26 mmol/L (23-31); Chloride 102 mmol/L (98-107); Estimated GFR 55; Glucose 112 mg/dL (83-110); Potassium 3.6 mmol/L (3.5-5.1); Sodium 139 mmol/L (136-145)
[2022-10-06] MEDS: Levothyroxine Sodium 100 MCG TAB PO SCH (06:09)
[2022-10-06] MEDS: Docusate 100 MG CAP PO SCH ×2 (09:26→21:32)
[2022-10-06] MEDS: Losartan 25 MG TAB PO SCH (09:26)
[2022-10-06] MEDS: Cholecalciferol 1,000 UNITS (25 MCG) TAB PO SCH (09:26)
[2022-10-06] MEDS: Potassium Chloride 10 MEQ TAB PO SCH (09:26)
[2022-10-06] MEDS: Sertraline 100 MG TAB PO SCH (09:27)
[2022-10-06] MEDS: Apixaban 2.5 MG TAB PO SCH (09:27)
[2022-10-06] MEDS: Furosemide 80 MG TAB PO SCH (09:27)
[2022-10-06] MEDS: Metoprolol Tartrate 50 MG TAB PO SCH ×2 (09:27→21:32)
[2022-10-06] MEDS: Empagliflozin 10 MG TAB PO SCH (09:28)
[2022-10-06] MEDS: Cyanocobalamin (Vitamin B-12) 1,000 MCG TAB PO SCH (09:28)
[2022-10-06] MEDS: Multivitamin W/ Minerals 1 TAB PO SCH (09:28)
[2022-10-06] MEDS: Aspirin 81 mg Enteric Coated Tablet PO SCH (09:28)
[2022-10-06] MEDS: Melatonin 3 MG TAB PO PRN (21:32)
[2022-10-06] MEDS: Atorvastatin Calcium 20 MG TAB PO SCH (21:32)
[2022-10-07 05:44] LABS: Hemoglobin 9.3 g/dL (14.0-18.0); Mean Corpuscular Hemoglobin 36.1 pg (27.0-31.0); Mean Platelet Volume 6.5 fL (7.4-10.4); Platelet Count 341 10x3/uL (130-400); RBC Distribution Width 14.7 % (11.5-14.5); Red Blood Cell (RBC) Count 2.56 mill/uL (4.70-6.10); White Blood Cell (WBC) Count 6.9 10x3/uL (4.8-10.8)
[2022-10-07 05:51] LABS: Anion Gap 11 mmol/L (10-20); BUN (Urea Nitrogen) 27 mg/dL (8.4-25.7); Calc. Creatinine Clearance 67 mL/min (70-130); Calcium 8.7 mg/dL (7.8-10.44); Carbon Dioxide 27 mmol/L (23-31); Chloride 103 mmol/L (98-107); Estimated GFR 65; Glucose 87 mg/dL (83-110); Sodium 137 mmol/L (136-145)
[2022-10-07] MEDS: Levothyroxine Sodium 100 MCG TAB PO SCH (06:02)
[2022-10-07] MEDS: Acetaminophen/Codeine 30-300mg Tablet PO PRN ×2 (06:02→22:49)
[2022-10-07] MEDS: Cholecalciferol 1,000 UNITS (25 MCG) TAB PO SCH (08:55)
[2022-10-07] MEDS: Metoprolol Tartrate 50 MG TAB PO SCH ×2 (08:55→20:48)
[2022-10-07] MEDS: Multivitamin W/ Minerals 1 TAB PO SCH (08:55)
[2022-10-07] MEDS: Potassium Chloride 10 MEQ TAB PO SCH (08:55)
[2022-10-07] MEDS: Losartan 25 MG TAB PO SCH (08:55)
[2022-10-07] MEDS: Aspirin 81 mg Enteric Coated Tablet PO SCH (08:55)
[2022-10-07] MEDS: Sertraline 100 MG TAB PO SCH (08:56)
[2022-10-07] MEDS: Furosemide 80 MG TAB PO SCH (08:56)
[2022-10-07] MEDS: Empagliflozin 10 MG TAB PO SCH (08:56)
[2022-10-07] MEDS: Docusate 100 MG CAP PO SCH ×2 (08:56→20:48)
[2022-10-07] MEDS: Cyanocobalamin (Vitamin B-12) 1,000 MCG TAB PO SCH (08:56)
[2022-10-07] MEDS: Melatonin 3 MG TAB PO PRN (20:48)
[2022-10-07] MEDS: Atorvastatin Calcium 20 MG TAB PO SCH (20:49)
[2022-10-08 05:00] LABS: Hemoglobin 9.7 g/dL (14.0-18.0); Mean Corpuscular HGB CONC 32.7 g/dL (32.0-36.0); Mean Corpuscular Hemoglobin 34.8 pg (27.0-31.0); Mean Platelet Volume 6.5 fL (7.4-10.4); Platelet Count 374 10x3/uL (130-400); RBC Distribution Width 14.7 % (11.5-14.5); Red Blood Cell (RBC) Count 2.77 mill/uL (4.70-6.10); White Blood Cell (WBC) Count 7.2 10x3/uL (4.8-10.8)
[2022-10-08 05:13] LABS: Anion Gap 14 mmol/L (10-20); BUN (Urea Nitrogen) 36 mg/dL (8.4-25.7); Calc. Creatinine Clearance 57 mL/min (70-130); Calcium 8.9 mg/dL (7.8-10.44); Carbon Dioxide 27 mmol/L (23-31); Chloride 101 mmol/L (98-107); Estimated GFR 54; Glucose 112 mg/dL (83-110); Potassium 4.1 mmol/L (3.5-5.1); Sodium 138 mmol/L (136-145)
[2022-10-08] MEDS: Levothyroxine Sodium 100 MCG TAB PO SCH (05:43)
[2022-10-08] MEDS: Sertraline 100 MG TAB PO SCH (08:51)
[2022-10-08] MEDS: Cholecalciferol 1,000 UNITS (25 MCG) TAB PO SCH (08:51)
[2022-10-08] MEDS: Potassium Chloride 10 MEQ TAB PO SCH (08:51)
[2022-10-08] MEDS: Empagliflozin 10 MG TAB PO SCH (08:52)
[2022-10-08] MEDS: Losartan 25 MG TAB PO SCH (08:52)
[2022-10-08] MEDS: Docusate 100 MG CAP PO SCH (08:52)
[2022-10-08] MEDS: Cyanocobalamin (Vitamin B-12) 1,000 MCG TAB PO SCH (08:52)
[2022-10-08] MEDS: Multivitamin W/ Minerals 1 TAB PO SCH (08:52)
[2022-10-08] MEDS: Metoprolol Tartrate 50 MG TAB PO SCH (08:52)
[2022-10-08] MEDS: Aspirin 81 mg Enteric Coated Tablet PO SCH (08:52)
[2022-10-08] MEDS ORDERED: Torsemide 20 MG TAB PO SCH (09:00)
[2022-10-08 11:42] VITALS: TEMP 97.7
[2022-10-08 12:56] VITALS: BP 117/63
== END 2022-10-08 14:33 | DRG 308 ==
LOC: ERS 09:08 → ERHOLD 14:15 → INTOOBSV 14:15 → 2NO 20:34 → OBSVTOIN 10-06 09:49
PROVIDERS: ADMIT Student in an Organized Health Care Education/Training Program; ATTEND Hospitalist
PROC: 4B02XSZ Measurement of Cardiac Pacemaker, External Approach (ICD-10-PCS; principal; 2022-10-03)
DX: I47.20 Ventricular tachycardia, unspecified (principal); I50.33 Acute on chronic diastolic (congestive) heart failure; I42.8 Other cardiomyopathies; Z66 Do not resuscitate; I34.0 Nonrheumatic mitral (valve) insufficiency; I11.0 Hypertensive heart disease with heart failure; F32.9 Major depressive disorder, single episode, unspecified; S70.02XA Contusion of left hip, initial encounter; W18.30XA Fall on same level, unspecified, initial encounter; I48.91 Unspecified atrial fibrillation; D53.1 Other megaloblastic anemias, not elsewhere classified; F03.90 Unspecified dementia, unspecified severity, without behavioral disturbance, psychotic disturbance, mood disturbance, and anxiety; E11.9 Type 2 diabetes mellitus without complications; E78.00 Pure hypercholesterolemia, unspecified; E03.9 Hypothyroidism, unspecified; M19.90 Unspecified osteoarthritis, unspecified site; R29.6 Repeated falls; Z95.0 Presence of cardiac pacemaker; Z91.81 History of falling; Z79.01 Long term (current) use of anticoagulants; Z88.8 Allergy status to other drugs, medicaments and biological substances; Z79.890 Hormone replacement therapy; Z79.899 Other long term (current) drug therapy; Z82.3 Family history of stroke; Z82.49 Family history of ischemic heart disease and other diseases of the circulatory system; Z87.891 Personal history of nicotine dependence; Z79.82 Long term (current) use of aspirin
CPT/HCPCS: 36415; 36416; 70450; 71260; 72100; 74177; 80048; 80053; 81003; 82553; 83880; 84484; 85025; 85027; 85049; 85300; 85362; 85379; 85384; 85610; 85730; 93005; 93010; 93306; 96374; G0378; J1940; Q9967

== ENCOUNTER 2022-10-22 21:29 | Emergency (ER) | payer OTHER ==
[2022-10-22 22:41] LABS: #Eosinphils 0.1 thou/uL (0.0-0.7); #Monocytes 0.8 thou/uL (0.11-0.59); #Neutrophils 2.7 thou/uL (1.40-6.50); %Basophils 0.8 % (0.0-1.0); %Eosinophils 1.4 % (0.0-10.0); %Lymphocytes 26.2 % (21.0-51.0); %Monocytes 16.4 % (0.0-10.0); Hemoglobin 10.5 g/dL (14.0-18.0); Mean Corpuscular HGB CONC 31.9 g/dL (32.0-36.0); Mean Corpuscular Hemoglobin 33.3 pg (27.0-31.0); Mean Corpuscular Volume 104.4 fl (78.0-98.0); Mean Platelet Volume 9.5 fL (7.4-10.4); Platelet Count 218 10x3/uL (130-400); RBC Distribution Width 15.1 % (11.5-14.5); Red Blood Cell (RBC) Count 3.15 mill/uL (4.70-6.10); White Blood Cell (WBC) Count 4.9 10x3/uL (4.8-10.8)
[2022-10-22 23:03] LABS: ALT (SGPT) 16 U/L (8-55); AST (SGOT) 25 U/L (5-34); Albumin 3.8 g/dL (3.4-4.8); Alkaline Phosphatase 121 U/L (40-110); Anion Gap 15 mmol/L (10-20); BUN (Urea Nitrogen) 39 mg/dL (8.4-25.7); Bilirubin, Total 0.8 mg/dL (0.2-1.2); Calc. Creatinine Clearance 0 mL/min (70-130); Calcium 9.4 mg/dL (7.8-10.44); Carbon Dioxide 28 mmol/L (23-31); Chloride 101 mmol/L (98-107); Estimated GFR 35; Globulin 2.5 g/dL (2.4-3.5); Glucose 100 mg/dL (83-110); Potassium 4.4 mmol/L (3.5-5.1); Protein, Total 6.3 g/dL (5.8-8.1); Sodium 140 mmol/L (136-145)
[2022-10-22 23:46] LABS: CKMB 2.7 ng/mL (0-6.6)
== END 2022-10-23 01:32 ==
LOC: ERS 21:29
DX: Z71.1 Person with feared health complaint in whom no diagnosis is made (principal); I10 Essential (primary) hypertension; E78.5 Hyperlipidemia, unspecified; F17.220 Nicotine dependence, chewing tobacco, uncomplicated
CPT/HCPCS: 36415; 71045; 80053; 82553; 84484; 85025; 93005